=== PATIENT | female | born 1950 | race Caucasian/White ===

== ENCOUNTER 2019-12-24 15:29 | Emergency (ER) | payer MEDICARE, OTHER, SELFPAY ==
[2019-12-24 15:34] VITALS: BP 210/120; PULSE 90; RESP 16; TEMP 36.1; O2SAT 97
[2019-12-24 16:30] VITALS: BP 205/91; PULSE 93; RESP 22; O2SAT 98
[2019-12-24 17:10] VITALS: BP 182/96; PULSE 78; RESP 13; O2SAT 98
[2019-12-24 17:37] LABS: Add Urine Microscopic? YES; Appearance Urine Clear (Clear); Bacteria Urine Trace /hpf; Bilirubin Urine Negative (Negative); Blood Urine Negative (Negative); Color Urine Yellow (Yellow); Glucose Urine UA Negative (Negative); Ketones Urine Negative (Negative); Leukocyte Esterase Ur 1+ LEU/UL (Negative); Mucus Urine Rare /lpf; Nitrate Urine Negative (Negative); Protein Urine 2+ mg/dL (Negative); Specific Grav Ur 1.013 (1.001-1.035); Squamous Epithelial Cell Urine Few /hpf (Few); Urobilinogen Urine Negative mg/dL (<2.0); WBC Urine 31-50 /hpf
[2019-12-24 17:41] LABS: Basophils Absolute Auto 0.1 K/mm3 (0.0-0.1); Basophils Percent Auto 1.1 % (0.2-1.2); Eosinophils Absolute Auto 0.1 K/mm3 (0-0.3); Eosinophils Percent Auto 1.7 % (0-4.4); Hematocrit 40.8 % (37.0-47.0); Hemoglobin 13.6 g/dL (12.0-15.0); Immature Granulocyte Absolute 0.01 K/mm3 (0.00-0.031); Immature Granulocyte Percent A 0.2 % (0-0.5); Lymphocytes Absolute Auto 1.62 K/mm3 (0.9-3.2); Lymphocytes Percent Auto 30.6 % (18.3-44.2); Mean Corpuscular HGB Conc 33.3 g/dl (32-36); Mean Corpuscular Hemoglobin 32.9 pg (26-34); Mean Corpuscular Volume 98.6 fl (80-100); Mean Platelet Volume 10.7 fl (7.4-10.4); Monocytes Absolute Auto 0.4 K/mm3 (0.1-0.6); Monocytes Percent Auto 7.8 % (2.6-8.5); Neutrophils Absolute Auto 3.1 K/mm3 (1.3-6.7); Neutrophils Percent Auto 58.6 % (45.5-73.1); Platelet Count Result 213 k/mm3 (150-375); Red Blood Count 4.14 M/mm3 (4.2-5.4); Red Cell Distribution Width 13.8 % (11.5-14.5); White Blood Count 5.3 K/mm3 (4.5-10.0)
[2019-12-24 17:52] LABS: Alanine Aminotransferase 22 U/L (4-35); Albumin Level 4.2 g/dL (3.5-5.1); Alkaline Phosphatase 81 U/L (38-126); Anion Gap 9.9 mmol/L (7-16); Aspartate Amino Transferase 26 U/L (14-36); Bilirubin,Total 0.5 mg/dL (0.2-1.3); Blood Urea Nitrogen 13 mg/dL (7-17); Calcium 9.4 mg/dL (8.4-10.2); Carbon Dioxide 27 mmol/L (22-30); Chloride 105 mmol/L (98-107); Estimated CRCL calculation 79 ml/min; Estimated Glomerular Filt Rate > 60; Glucose 104 mg/dL (65-105); Potassium 3.9 mmol/L (3.4-5.0); Sodium 138 mmol/L (137-145)
--- NOTE | 2019-12-24 17:52 | ED.GENADULT ---
HPI - General Adult General Chief complaint: Recheck/Abnormal Lab/Rx <Victor Manuel Singer PA-C - Last Filed: 12/24/19 17:58> Stated complaint: hypertensive crisis <Victor Manuel Singer PA-C - Last Filed: 12/24/19 17:58> Time Seen by Provider: 12/24/19 17:06 <Victor Manuel Singer PA-C - Last Filed: 12/24/19 17:58> Source: patient <Victor Manuel Singer PA-C - Last Filed: 12/24/19 17:58> Mode of arrival: ambulatory <Victor Manuel Singer PA-C - Last Filed: 12/24/19 17:58> Limitations: no limitations <Victor Manuel Singer PA-C - Last Filed: 12/24/19 17:58> History of Present Illness HPI narrative: Patient is a 69-year-old female who presents to emergency department for evaluation of having been found to have elevated blood pressure while seeing her physician for the first visit patient notes no symptoms has had some mild headache and dizziness over the weekend which resolved patient on arrival to emergency department is asymptomatic notes that she did have some burning with urination over the weekend as well and was concerned for possible urinary tract infection patient on arrival to emergency department is resting comfortably in the room in no distress has not taken anything for her symptoms notes that she has been off her lisinopril for 1 year <Victor Manuel Singer PA-C - Last Filed: 12/24/19 17:58> Related Data Allergies/adverse reactions: Allergies Allergy/AdvReac Type Severity Reaction Status Date / Time No Known Allergies Allergy Verified 12/24/19 17:21 <Victor Manuel Singer PA-C - Last Filed: 12/24/19 17:58> Review of Systems Review of Systems: All systems reviewed & are unremarkable except as noted in HPI and below <Victor Manuel Singer PA-C - Last Filed: 12/24/19 17:58> [facility] Past Medical History Medical History: Medical History (Updated 12/24/19 @ 17:56 by Victor Manuel Singer PA-C) Hypertension Obesity <Victor Manuel Singer PA-C - Last Filed: 12/24/19 17:58> Social History Social History: Social History (Updated 12/24/19 @ 17:53 by Victor Manuel Singer PA-C) Smoking status: Never smoker <MARCELA Aguilar Last Filed: 12/24/19 17:58> Exam Narrative: Exam Narrative: GENERAL: Well-appearing, obese, and in no acute distress. HEAD: Normocephalic, atraumatic. EYES: PERRLA and EOMI. ENT: Nares clear, no rhinorrhea or epistaxis. Mucous membranes moist. CHEST: Clear to auscultation. No respiratory distress. No wheezes rales or rhonchi HEART: Regular rate and rhythm. No murmur heard. Normal peripheral pulses. ABDOMEN: Soft, nontender, nondistended EXTREMITIES: Normal range of motion. 1+ edema to the lower extremities SKIN: Warm, dry, no rash. NEURO: No focal deficits. Alert and oriented x3. Cranial nerves II through XII grossly intact PSYCH: Normal mood and affect. <MARCELA Aguilar Last Filed: 12/24/19 17:58> Course Course Emergency Course: Patient in the room in no distress aware of case findings treatment plan and diagnosis agreeing to follow-up as directed or to return if symptoms worsen or concerns. Patient will be started back on her blood pressure medicine and treated for urinary tract infection. <MARCELA Aguilar Last Filed: 12/24/19 17:58> Vital Signs Vital signs: Vital Signs Temperature 97.0 F L 12/24/19 15:34 Pulse Rate 90 12/24/19 15:34 Respiratory Rate 16 12/24/19 15:34 Blood Pressure 210/120 H 12/24/19 15:34 Pulse Oximetry 97 12/24/19 15:34 Temperature 97.0 F L 12/24/19 15:34 Pulse Rate 72 12/24/19 18:46 Respiratory Rate 18 12/24/19 18:46 Blood Pressure 182/95 H 12/24/19 18:46 Pulse Oximetry 98 12/24/19 18:46 <MARCELA Aguilar Last Filed: 12/24/19 17:58> Vital Signs Temperature 97.0 F L 12/24/19 15:34 Pulse Rate 90 12/24/19 15:34 Respiratory Rate 16 12/24/19 15:34 Blood Pressure 210/120 H 12/24/19 15:34 Pulse Oximetry 97 12/24/19 15:34 Temperature 97
[2019-12-24 18:46] VITALS: BP 182/95; PULSE 72; RESP 18; O2SAT 98
== END 2019-12-24 18:35 | disposition home or self-care (01) ==
PROVIDERS: Emergency Medicine Emergency Medical Services; Emergency Provider General Practice; PCP Family Medicine
DX: I10 Essential (primary) hypertension (principal); N39.0 Urinary tract infection, site not specified; E66.9 Obesity, unspecified; Z68.42 Body mass index [BMI] 45.0-49.9, adult
CPT/HCPCS: 36415; 80053; 81001; 85025; 87086; 87088; 99283

== ENCOUNTER → 2021-11-20 09:17 | Outpatient (CLI) | payer MEDICARE, OTHER, SELFPAY ==
--- NOTE | ~2021-11-20 | XR_ITS ---
XR hip LT min 2V DATE: 11/20/2021 09:55 INDICATION: Left hip pain TECHNIQUE: AP and lateral views COMPARISON: None FINDINGS: There is severe left hip joint space narrowing and prominent spurring consistent with sever e left hip osteoarthritis. No fracture or dislocation or bone destruction is detected. IMPRESSION: Severe left hip osteoarthritis with [id number], prominent spurring Reviewed, dictated and finalized at location A. IMPRESSION: Severe left hip osteoarthritis with [id number], prominent spurrin g
== END ==
PROVIDERS: PCP Nurse Practitioner Adult Health; Visit Provider Nurse Practitioner Adult Health
DX: M25.552 Pain in left hip (principal); M16.11 Unilateral primary osteoarthritis, right hip
CPT/HCPCS: 73502

== ENCOUNTER → 2021-12-15 08:26 | Outpatient (CLI) | payer MEDICARE, OTHER, SELFPAY ==
--- NOTE | ~2021-12-15 | MR_ITS ---
EXAMINATION: MR hip LT wo con DATE: 12/15/2021 09:46 INDICATION: Osteoarthritis with several weeks of left hip pain TECHNIQUE: Magnetic resonance imaging (MRI) of the affected hip was performed without intravenous co ntrast. Sequences included full-field axial PD-weighted FS FSE and T1-weighted FSE, coronal of the pe lvis with PD-weighted FS FSE, small field of view of the affected hip with axial PD-weighted FS FSE, sagittal PD-weighted FS FSE and coronal PD weighted FS FSE. Additional radial T1-weighted FGR orient ed orthogonal to the acetabular rim were obtained for evaluation of the labrum. COMPARISON: None FINDINGS: Bones/labrum/cartilage: Magnetic mcmullen artifact associated with a right total hip arthroplasty which obscures the immediatel y adjacent bone and soft tissues at the right acetabulum and proximal right femur. Bone alignment is normal. No fracture, avascular necrosis or pathologic marrow replacing process. Severe left hip oste oarthritis with extensive full/near full-thickness cartilage loss along the cephalad third of the [place]ia [place] nt space with large amount of subarticular cystlike changes throughout the superior left acetabulum w ith mild subarticular edema-like signal change in a few smaller cystlike changes at the apex of the l eft femoral head. Small to moderate size marginal osteophytes about the left femoral head. There is d egenerative tearing of the anterosuperior and posterior left acetabular labrum. Fluid: Mild synovitis at the left hip without associated joint effusion at the left hip. No other abnormal f luid collections. Soft tissues: Asymmetric muscular atrophy of the right kidney is an obturator internus and externus musculature rel ative to the left which may be related to prior hip surgery. The iliopsoas and proximal hamstring ten dons are normal. Mild tendinopathy at the bilateral gluteus minimus tendons with small amount of hete rotopic ossification at the distal left gluteus minimus tendon. There is mild proximal retraction of the myotendinous junction of the left gluteus medius consistent with otherwise occult partial-thickne ss tear of the distal left gluteus medius tendon. Multiple diverticula along the sigmoid colon withou t adjacent from 3 change to suggest diverticulitis. Thickened heterogeneous endometrial complex which measures 2.5 cm in thickness. Limited evaluation of visceral organs of the pelvis is otherwise unrem arkable. No pathologically enlarged pelvic/inguinal lymphadenopathy. IMPRESSION: 1. Severe left hip osteoarthritis with degenerative tearing of the anterosuperior and posterior labru m. 2. Status post right total hip arthroplasty. 3. Partial-thickness tear of the distal left gluteus medius tendon. Reviewed, dictated and finalized at location A. IMPRESSION: 1. Severe left hip osteoarthritis with degenerative tearing of the anterosuperi or and posterior labrum. 2. Status post right total hip arthroplasty. 3. Partial-thickness tear of the distal left gluteus medius tendon.
== END ==
PROVIDERS: PCP Nurse Practitioner Adult Health; Visit Provider Nurse Practitioner Adult Health
DX: M16.12 Unilateral primary osteoarthritis, left hip (principal)
CPT/HCPCS: 73721